=== PATIENT | female | born 1960 | race Caucasian/White ===

== ENCOUNTER 2017-06-06 11:19 | Day surgery (SDC) | payer BC ==
[~2017-06-06] VITALS: Ht 154.9 cm; Wt 79.6 kg
[2017-06-06 13:42] VITALS: Ht 154.9 cm; Wt 79.6 kg
--- NOTE | 2017-06-06 14:16 | OPPN ---
Date/Time of Note Date/Time of Note DATE: 06/06/17 TIME: 13:47 Operative Report Preoperative Diagnosis Screening Postoperative Diagnosis Internal hemorrhoids No colon neoplasm is identified Operation/Procedure Performed Colonoscopy Provider: CANDIDA JUDGE MD Anesthesia Type: moderate sedation Estimated blood loss: none Transfusion Required: no Specimen: none Grafts/Implants: none Complications: no CANDIDA JUDGE MD Jun 06, 2017 14:16
[2017-06-06] MEDS ORDERED: MIDAZOLAM 1 MG/ML 2 ML INJ ONE ×2 (14:22)
[2017-06-06] MEDS ORDERED: FENTAnyl 50 MCG/ML VIAL ONE (14:22)
[2017-06-06 14:35] VITALS: BP 102/62; RESP 14
--- NOTE | 2017-06-06 20:19 | GILP ---
DATE OF PROCEDURE: 06/06/2017 PREOPERATIVE DIAGNOSIS: Screening colonoscopy. POSTOPERATIVE DIAGNOSES: 1. Colonoscopy all the way to the cecum. 2. Internal hemorrhoids. 3. No colon neoplasm was identified. PROCEDURE PERFORMED: Colonoscopy. SURGEON: Bubba Pittman MD. INDICATIONS FOR PROCEDURE: Mrs. Rosita Rivera is a 56-year- old female patient who was scheduled for a screening colonoscopy. The procedure and possible complications were well explained to the patient. She understood and consented to the procedure. DESCRIPTION OF PROCEDURE: Under the influence of fentanyl and Versed the colonoscope was carefully introduced in the rectum and under direct vision it was advanced all the way to the cecum. Findings, the patient had internal hemorrhoids. No colon neoplasm was identified. She tolerated the procedure very well. There was no complications from the procedure. At the end of procedure she was awake with stable vital signs and she was discharged home in the care of her family. IMPRESSION: 1. Colonoscopy all the way to the cecum. 2. Internal hemorrhoids. 3. No colon neoplasm was identified. PLAN: Next screening colonoscopy in 10 years. Dictated By: MD KIMBERLY Plummer/kapil/yony /Document#: [id number] CC: Bubba Pittman MD;*End*
== END 2017-06-06 16:04 | disposition home or self-care (01) ==
LOC: GIL 11:19
PROVIDERS: ATTEND Internal Medicine Gastroenterology
DX: Z12.11 Encounter for screening for malignant neoplasm of colon (principal); K64.8 Other hemorrhoids
CPT/HCPCS: 45378; J2250; J3010; Z7610